=== PATIENT | female | born 1940 | race Caucasian/White ===

== ENCOUNTER 2020-11-25 08:52 | Emergency (ER) | payer OTHER ==
[~2020-11-25] VITALS: Ht 152.4 cm; Wt 48.1 kg
[2020-11-25 09:33] VITALS: BP_SYST 125
--- NOTE | 2020-11-25 09:35 | NUR ---
Patient to ER bed 8 to gown for evaluation. Side rails up.
--- NOTE | 2020-11-25 09:40 | NUR ---
Pt came into ER with complaint of upper back pain [id number]. Pt is AOOX4 speaking full sentences. VSS no distress noted attached to monitor resting in [facility].
--- NOTE | 2020-11-25 09:40 | NUR ---
Katy sanchez in ED - 11/25/20 at 0946 by JAMIR Pt came into ER withc
--- NOTE | 2020-11-25 09:41 | NUR ---
ER at bedside examining patient.
--- NOTE | 2020-11-25 09:53 | NUR ---
Lab at bedside.
[2020-11-25] MEDS ORDERED: IOHEXOL 350 mgI/mL, 150 ML INFUS..BTL IV ONE (09:57)
[2020-11-25 10:04] LABS: BASOPHILS # (AUTO) 0.1 K/uL (0.0-0.2); BASOPHILS % (AUTO) 1.4 % (0.0-2.0); EOSINOPHILS # (AUTO) 0.1 K/uL (0.0-0.4); EOSINOPHILS % (AUTO) 2.7 % (0.0-4.0); HEMATOCRIT 36.4 % (36-48); HEMOGLOBIN 12.5 g/dL (12.0-16.0); LYMPHOCYTES # (AUTO) 1.1 K/uL (1.0-5.5); LYMPHOCYTES % (AUTO) 21.3 % (20.5-51.5); MEAN CORPUSCULAR HEMOGLOBIN 32 pg (27-31); MEAN CORPUSCULAR HGB CONC 34 % (32-36); MEAN CORPUSCULAR VOLUME 94 fL (79.0-98.0); MONOCYTES # (AUTO) 0.6 K/uL (0.0-1.0); MONOCYTES % (AUTO) 10.8 % (1.7-9.3); NEUTROPHILS # (AUTO) 3.4 K/uL (1.8-7.7); NEUTROPHILS % (AUTO) 63.8 % (40.0-70.0); PLATELET COUNT (AUTO) 315 K/uL (130-430); RED BLOOD CELL COUNT(AUTO) 3.86 MIL/uL (4.2-6.2); RED CELL DISTRIBUTION WIDTH 13.8 % (9.0-15.0); WHITE BLOOD COUNT (AUTO) 5.4 K/uL (4.8-10.8)
--- NOTE | 2020-11-25 10:05 | NUR ---
# 18 gauge angiocath placed to LAC. Use of asceptic technique. Opsite placed over site. Blood return noted. Blood for lab drawn from site. Flushed with 10 cc of normal saline. No evidence of infiltration noted. Patient tolerated well.
--- NOTE | 2020-11-25 10:16 | NUR ---
CT with contrast consent reviewed and signed by pt.
[2020-11-25 10:21] LABS: INR 0.9 (0.8-1.2); PROTHROMBIN TIME 9.8 SECS (9.5-12.5)
[2020-11-25 10:24] LABS: CHLORIDE 105 mmol/L (98-107); POTASSIUM 4.7 mmol/L (3.5-5.1); SODIUM SERUM 140 mmol/L (136-145)
[2020-11-25 10:25] LABS: ANION GAP 9 (5-15); ASPARTATE AMINOTRANSFERASE 17 U/L (10-37); CALCIUM 8.9 mg/dL (8.4-11.0); CREATININE 0.83 mg/dL (0.55-1.30); GLUCOSE 134 mg/dL (70-99); TOTAL BILIRUBIN 0.5 mg/dL (0.0-1.0); UREA NITROGEN, BLOOD 15 mg/dL (8-21)
[2020-11-25 10:26] LABS: ALANINE AMINOTRANSFERASE 18 U/L (12-78); ALBUMIN 3.4 g/dL (3.4-4.8)
[2020-11-25 10:28] LABS: LIPASE 57 U/L (73-393)
--- NOTE | 2020-11-25 10:44 | NUR ---
Urine collected and sent to lab.
[2020-11-25 10:48] LABS: BILIRUBIN,URINE NEGATIVE (NEGATIVE); BLOOD, URINE NEGATIVE (NEGATIVE); CLARITY/URINE CLEAR (CLEAR); COLOR,URINE YELLOW (YELLOW); GLUCOSE,URINE NEGATIVE (NEGATIVE); KETONES,URINE TRACE (NEGATIVE); LEUKOCYTE ESTERASE ,URINE NEGATIVE (NEGATIVE); NITRITE, URINE NEGATIVE (NEGATIVE); PH,URINE 6.5 (5.0-8.0); PROTEIN URINE NEGATIVE (NEGATIVE); UROBILINOGEN,URINE 0.2 (0.2-1.0)
[2020-11-25] MEDS: fentaNYL CITRATE/PF 100 MCG/2 ML AMP IVP ONE (10:52)
--- NOTE | 2020-11-25 11:08 | NUR ---
Patient transported to radiology via wheelchair, accompanied by self.
--- NOTE | 2020-11-25 11:15 | NUR ---
Pt back from CT reattached to monitor.
[2020-11-25] MEDS: MORPHINE 2 MG/ML INJ. SYRINGE IVP ONE (12:10)
[2020-11-25] MEDS ORDERED: HYDR-3917 PO (13:20)
[2020-11-25] MEDS ORDERED: NAPR-688 PO (13:20)
[2020-11-25 13:39] VITALS: BP_SYST 144
--- NOTE | 2020-11-25 13:40 | NUR ---
Patient given written and verbal discharge instructions and verbalizes understanding. ER MD discussed with patient the results and treatment provided. Patient in stable condition. ID arm band removed. IV catheter removed intact and dressing applied, no active bleeding. Rx of [place] and Naproxen given. Patient educated on pain management and to follow up with PMD. Pain Scale 2/10. Opportunity for questions provided and answered. Medication side effect fact sheet provided.
== END 2020-11-25 13:40 | disposition home or self-care (01) ==
LOC: SED 08:52
DX: M54.6 Pain in thoracic spine (principal); I10 Essential (primary) hypertension; E11.9 Type 2 diabetes mellitus without complications; Z88.1 Allergy status to other antibiotic agents; Z88.0 Allergy status to penicillin; Z88.2 Allergy status to sulfonamides; Z79.899 Other long term (current) drug therapy
CPT/HCPCS: 36415; 71045; 71275; 72191; 74175; 76376; 80053; 81003; 83690; 84484; 85025; 85610; 85730; 93005; 96374; 96375; 99284; J2270; J3010; Q9967